=== PATIENT | female | born 2000 | race Hispanic/Latino ===

== ENCOUNTER 2024-12-04 17:59 | Inpatient (IN) | payer BC ==
[2024-12-04] MEDS ORDERED: Oxytocin 30 units/NS 500 ML 500 ML IV SCH ×2 (18:37)
[2024-12-04] MEDS ORDERED: Ondansetron PF 4 MG/2 ML Vial IVP PRN (18:37)
[2024-12-04] MEDS ORDERED: HYDROcodone/Acetaminophen 5/325 mg Tablet PO PRN ×2 (18:37)
[2024-12-04] MEDS ORDERED: Acetaminophen 500 MG TAB PO PRN (18:37)
[2024-12-04] MEDS ORDERED: Diphenoxylate HCl/Atropine Tablet PO PRN ×2 (18:37)
[2024-12-04] MEDS ORDERED: hydrALAZINE 20 MG/ML VIAL SLOW IVP PRN (18:37)
[2024-12-04] MEDS ORDERED: Carboprost 250 MCG/ML AMP IM PRN (18:37)
[2024-12-04] MEDS ORDERED: Tranexamic Acid 1,000 MG/10 ML VIAL IVP PRN (18:37)
[2024-12-04] MEDS ORDERED: Lidocaine 1% (PF) 30 ML VIAL SC PRN (18:37)
[2024-12-04] MEDS ORDERED: Methylergonovine 0.2 MG/ML VIAL IM PRN (18:37)
[2024-12-04 18:39] VITALS: BMI 31.1
[2024-12-04 18:47] LABS: Hematocrit 31.2 % (34.9-44.5); Hemoglobin 10.5 g/dL (12.0-15.5); Mean Corpuscular Hemoglobin 26.9 pg (27.0-33.0); Mean Corpuscular Volume 79.8 fL (81.6-98.3); Platelet Count 196 10x3/uL (150-450); Red Blood Cell (RBC) Count 3.91 10x6/uL (3.90-5.03); White Blood Cell (WBC) Count 5.41 10x3/uL (3.5-10.5)
[2024-12-04 21:15] LABS: Syphilis Antibody Index 0.18 S/CO (<1.00 Non-Reactive)
[2024-12-04 21:22] LABS: Hep B Surf Ag - L&D Non-Reactive S/CO (NonReactive)
[2024-12-05] MEDS: fentaNYL/Ropivacaine Epidural 100 ML ONE (12:03)
[2024-12-05] MEDS ORDERED: Acetaminophen 325 MG TAB PO PRN (12:06)
[2024-12-05] MEDS ORDERED: diphenhydrAMINE 50 MG/ML VIAL IVP PRN (12:06)
[2024-12-05] MEDS ORDERED: Ondansetron PF 4 MG/2 ML Vial IVP PRN (12:06)
[2024-12-05] MEDS: fentaNYL 2 mcg/Ropivacaine 0.2% Epidural 100 ML CADD EPIDURAL SCH (20:15)
[2024-12-05] MEDS ORDERED: hydrALAZINE 20 MG/ML VIAL SLOW IVP PRN (23:18)
[2024-12-05] MEDS ORDERED: Bisacodyl 10 MG SUPP PR PRN (23:18)
[2024-12-05] MEDS ORDERED: Lanolin Ointment 7 GM TUBE TOP PRN (23:18)
[2024-12-05] MEDS ORDERED: Milk Of Magnesia 30 ML UDCUP PO PRN (23:18)
[2024-12-05] MEDS ORDERED: Preparation H Ointment 28 GM TUBE PR PRN (23:18)
[2024-12-05] MEDS: Ibuprofen 800 MG TAB PO PRN (23:44)
[2024-12-06] MEDS: Oxytocin 30 units/NS 500 ML 500 ML ONE (01:28)
[2024-12-06] MEDS: Ibuprofen 800 MG TAB PO SCH ×2 (01:29→07:54)
[2024-12-06] MEDS: Ferrous Sulfate 325 MG TAB PO SCH (07:22)
[2024-12-06] MEDS: Benzocaine-Menthol 82.5 ML CAN TOP PRN (07:53)
[2024-12-06] MEDS ORDERED: Diphenoxylate HCl/Atropine Tablet PO PRN ×2 (12:06)
[2024-12-07 07:54] VITALS: BP 133/76; TEMP 97.8
[2024-12-07] MEDS: Boostrix 0.5 ML (Tdap) VIAL (>/=7 yrs of age) IM ONE (10:40)
== END 2024-12-07 10:15 | disposition home or self-care (01) | DRG 806 ==
LOC: CSHLD 17:59 → CSHPP 12-06 00:55
PROVIDERS: ADMIT Obstetrics & Gynecology; ATTEND Obstetrics & Gynecology
PROC: 10E0XZZ Delivery of Products of Conception, External Approach (ICD-10-PCS; principal; 2024-12-05)
PROC: 0KQM0ZZ Repair Perineum Muscle, Open Approach (ICD-10-PCS; 2024-12-05)
PROC: 0UQMXZZ Repair Vulva, External Approach (ICD-10-PCS; 2024-12-05)
DX: O48.0 Post-term pregnancy (principal); O86.4 Pyrexia of unknown origin following delivery; Z37.0 Single live birth; Z3A.40 40 weeks gestation of pregnancy; O70.1 Second degree perineal laceration during delivery; O71.82 Other specified trauma to perineum and vulva
CPT/HCPCS: 36415; 51702; 85027; 86780; 86850; 86900; 86901; 87340; J0295; J7120